=== PATIENT | female | born 1995 | race Caucasian/White ===

== ENCOUNTER 2020-08-13 02:00 | Observation (INO) | payer OTHER, SELFPAY ==
[2020-08-13] VITALS (27 sets, daily range): BP systolic 87–147; BP diastolic 43–91; PULSE 46–85; RESP 9–20; TEMP 36.4–38.3; O2SAT 93–100; BMI 22.3
--- NOTE | 2020-08-13 | PATH_ITS ---
[facility] Accession Number: [id number] . 01 Material submitted: . appendix - APPENDIX . 01 Clinical history: . NAUSEA, VOMITING, STOMACH PAIN . 01 Diagnosis: Vermiform Appendix, Appendectomy: Acute transmural, suppurative appendicitis and periappendicitis. Negative for neoplasia. V 08/15/2020 1337 Local . 01 Electronically signed: . Xenia Méndez MD, Pathologist NPI- [id number] . 01 Gross description: . The specimen is received in formalin, labeled appendix and consists of a 4.5 cm in length x 0.6 cm in diameter vermiform appendix with attached parra-yellow mesoappendix measuring 2.0 x 1.5 x 1.0 cm in aggregate. The specimen is parra-pink and smooth with adherent purulent exudate. Sectioning reveals a brown, hemorrhagic mucosa and a lumen measuring 0.5 cm in diameter. There is a possible perforation site located in the tip of the appendix. Spreading Machine Operator sections are submitted. . A1 - Margin, en face (blue) and cross-sections. A2 - Bisected tip, entirely submitted. ([id number]) /[facility] 08/14/2020 1813 Local . 01 Pathologist provided ICD-10: K37 . 01 CPT . 294231 Performed at: [address], [place], [place] [id number] MD Pawan Faulkner MD Phone: [phone]
--- NOTE | 2020-08-13 02:20 | ED.GENADULT ---
HPI - General Adult General Chief complaint: Abdominal Pain Stated complaint: nausea, vomiting, stomach pain Time Seen by Provider: 08/13/20 02:03 Source: patient Mode of arrival: Ambulatory Limitations: no limitations History of Present Illness HPI narrative: 24-year-old female here for evaluation of lower abdominal pain and vomiting. She states that she had a small amount abdominal pain throughout the day which worsened approximately 2000 hours last evening. She states she had a bowel movement in the morning but throughout the day felt like she had to have bowel movements but could not go. She denies any urinary symptoms. No vaginal bleeding. Has had multiple episodes of vomiting since 2000 hours. No fevers. No recent antibiotics. No recent travel. She states that the vomiting helps her abdominal pain slightly for very short period of time but then it returns. Related Data Allergies Allergy/AdvReac Type Severity Reaction Status Date / Time No Known Drug Allergies Allergy Verified 08/13/20 02:13 Review of Systems Constitutional Constitutional: Denies fever(s) Cardiovascular Cardiovascular: Denies chest pain and Denies dyspnea Respiratory Respiratory: Denies dyspnea Gastrointestinal Gastrointestinal: Reports abdominal pain, Denies change in bowel habits, Reports nausea and Reports vomiting Genitourinary Genitourinary: Denies dysuria Genitourinary: Denies dysuria and Denies vaginal discharge Musculoskeletal Musculoskeletal: Denies arthralgias, Denies back pain and Denies myalgias Integumentary/Breasts Skin/Breast: Denies rash Neurologic Neurologic: Denies behavioral changes Psychiatric Psychiatric: Denies behavioral changes Hematologic/Lymphatic Hematologic/Lymphatic: Denies easy bleeding and Denies easy bruising Allergic/Immunologic Allergic/Immunologic: Denies urticaria Patient History Medical History Healthy adult (Acute) Social History Smoking Status: Never smoker Smoking Status: Never smoker alcohol intake frequency: a few times a month Substance Use Type: does not use Exam Initial Vital Signs Initial Vital Signs: Vital Signs Temperature 97.6 F 08/13/20 02:08 Pulse Rate 52 L 08/13/20 02:08 Respiratory Rate 16 08/13/20 02:08 Blood Pressure 141/87 H 08/13/20 02:08 Pulse Oximetry 100 08/13/20 02:08 Const General: cooperative, well developed and well groomed Limitations: mental status not altered [facility] Head: normal to inspection and normocephalic Resp Effort & Inspection: normal respiratory effort Auscultation: clear to auscultation bilaterally Cardio Rate: regular rate Rhythm: regular rhythm GI Inspection: non-distended Palpation: soft, No firm, guarding and tender (Diffuse tenderness) Skin Lesions: no lesions Rashes: no rashes Neuro General: patient alert, patient awake and patient oriented x3 Cognition: normal cognition Speech: speech normal Extrem General: normal to inspection and capillary refill normal Psych Appearance: grossly normal and well kempt Course Orders Ordered: ED Orders 08/13/20 02:10 Complete Blood Count AUTO DIFF Stat Comprehensive Metabolic Panel Stat Lipase Stat Test Serum,Qual Stat 08/13/20 02:52 CT abdomen pelvis w con Stat 08/13/20 03:52 Consult to General Surgery Urgent 08/13/20 03:56 COVID19 -ED/INPAT/OR/L&D Stat Piperacillin/Tazobactam/Dextrose (Zosyn) 3.375 gm in 50 mls @ 100 mls/hr IV NOW ONE Stop: 08/13/20 04:21 Sodium Chloride (Normal Saline 0.9%) 1,000 mls @ 125 mls/hr IV CONT CELSA Morphine Sulfate (Morphine) 2 mg IV Q4HR PRN PRN Reason: Pain, Mild (1-3) Ondansetron HCl (Zofran) 4 mg IV Q4HR PRN PRN Reason: Nausea And Vomiting Discontinued Medications Sodium Chloride (Normal Saline 0.9%) 1,000 mls @ 1,000 mls/hr IV BOLUS ONE Stop: 08/13/20 03:18 Last Infusion: 08/13/20 03:00 Dose: 0 mls/hr Documented by: Admin: 08/13/20 02:22 Dose: 1,000 mls/hr Documented by: RMARTIN Sodium Chloride (Normal Saline 0.9%) 1,000 mls @ 1,000 mls/hr IV BOLUS ONE Stop: 08/13/20 03:50 Last Infusion: 08/13/20 03:52 Dose: 0 mls/hr Documented by: Admin: 08/13/20 02:54 Dose: 1,000 mls/hr Documented by: RMARTIN Ketorolac Tromethamine (Toradol) 30 mg IV NOW ONE Stop: 08/13/20 02:49 Last Admin: 08/13/20 02:51 Dose: 30 mg Documented by: NERIS Ondansetron HCl (Zofran) 4 mg IV NOW ONE Stop: 08/13/20 02:20 Last Admin: 08/13/20 02:23 Dose: 4 mg Documented by: NERIS Vital Signs Vital signs: Vital Signs - 8 hr 08/13/20 02:08 08/13/20 03:00 Temperature 97.6 F Pulse Rate 52 L 54 L Respiratory Rate 16 16 Blood Pressure 141/87 H 147/86 H Pulse Oximetry 100 97 Medical Decision Making Lab Data Lab results reviewed: Yes I reviewed the patient's lab results. Result diagrams: 08/13/20 02:10 08/13/20 02:10 Labs: Lab Results 08/13/20 08/13/20 08/13/20 Range/Units 02:10 02:10 02:10 WBC 25.2 H (4.5-11.0) X10^3/uL RBC 4.38 (4.0-5.2) X10^6/uL Hgb 13.1 (12.0-16.0) g/dL Hct 39.4 (36-46) % MCV 89.9 (80-100) fL MCH 29.9 (26-34) PG MCHC 33.2 (30-36) % RDW 12.8 (11.6-14.8) % Plt Count 250 (150-400) X10^3/uL Neut % (Auto) Not Reportable Lymph % (Auto) Not Reportable [place] % (Auto) Not Reportable Eos % (Auto) Not Reportable Baso % (Auto) Not Reportable Lymph # (Auto) Not Reportable [place] # (Auto) Not Reportable Baso # (Auto) Not Reportable Total Counted 100 Seg Neutrophils % 93.0 H (38-70) % Band Neutrophils % 1.0 L (3-7) % Lymphocytes % (Manual) 3.0 L (25-45) % Monocytes % (Manual) 2.0 (2-11) % Basophils % (Manual) 1.0 (0-1) % Neutrophils # (Manual) 95091 H (1741-5912) /uL RBC Morphology Normal morphology Sodium 138 (137-145) mmol/L Potassium 3.9 (3.4-5.1) mmol/L Chloride 104 (98-107) mmol/L Carbon Dioxide 27 (22-32) mmol/L BUN 16 (7-17) mg/dL Creatinine 0.63 (0.52-1.04) mg/dL Estimated GFR > 60.0 (>60) mL/min BUN/Creatinine Ratio 25.4 H (6-22) Glucose 131 H (70-100) mg/dL Calcium 9.3 (8.4-10.2) mg/dL Total Bilirubin 0.7 (0.2-1.3) mg/dL AST 31 (14-36) IU/L ALT 17 (<35) IU/L Alkaline Phosphatase 69 (38-126) U/L Total Protein 7.4 (6.3-8.2) g/dL Albumin 4.5 (3.5-5.0) g/dL Globulin 2.9 (1.7-4.1) g/dL Albumin/Globulin Ratio 1.6 (1.0-2.8) Lipase 91 (23-300) U/L Serum , Qual Negative (Negative) Imaging Data CT scan - abdomen/pelvis: Radiologist's Impression: Acute appendicitis, malpositioned IUD in the cervix MDM Narrative Medical decision making narrative: Otherwise healthy 24-year-old female with history and physical in CT scan findings consistent with appendicitis. I did discuss the case with Dr. Ribera with General surgery. Will admit for further evaluation and treatment. Antibiotics ordered per his request. I did inform Dr. Ribera of the incidental finding of the malpositioned IUD. I also discussed this with the patient so that if it is not addressed during this hospital visit that she can contact her primary provider/dice dealer provider to have this incidental finding corrected. Patient expressed understanding and agreement. I did discuss the CT scan findings with the patient. We did discuss the need for admission to the hospital. She once again expressed understanding and agreement. Discharge Plan Departure Patient Disposition: Admitted As Inpatient Clinical Impression: Acute appendicitis Qualifiers: Acute appendicitis type: with localized peritonitis Appendicitis gangrene presence: without gangrene Appendicitis perforation presence: without perforation Appendicitis abscess presence: without abscess Qualified Code(s): K35.30 - Acute appendicitis with localized peritonitis, without perforation or gangrene Malpositioned intrauterine device (IUD) Qualifiers: Encounter type: initial encounter Qualified Code(s): T83.32XA - Displacement of intrauterine contraceptive device, initial encounter
[2020-08-13] MEDS: SODIUM CHLORIDE 0.9% 1,000 ML 1000 ML IV ×2 (02:22→02:54)
[2020-08-13] MEDS: ONDANSETRON 4 MG/2 ML INJ IV (02:23)
[2020-08-13 02:32] LABS: Hematocrit 39.4 % (36-46); Hemoglobin 13.1 g/dL (12.0-16.0); Mean Corpuscular HGB Conc 33.2 % (30-36); Mean Corpuscular Hemoglobin 29.9 PG (26-34); Mean Corpuscular Volume 89.9 fL (80-100); Platelet Count 250 X10^3/uL (150-400); Red Blood Cell Count 4.38 X10^6/uL (4.0-5.2); Red Cell Distribution Width 12.8 % (11.6-14.8); White Blood Cell Count 25.2 X10^3/uL (4.5-11.0)
[2020-08-13 02:33] LABS: Add Manual Diff / Slide Review YES
[2020-08-13 02:37] LABS: Pregnancy Test Serum,Qual Negative (Negative)
[2020-08-13 02:43] LABS: Alanine Aminotransferase 17 IU/L (<35); Albumin 4.5 g/dL (3.5-5.0); Albumin Globulin Ratio 1.6 (1.0-2.8); Alkaline Phosphatase 69 U/L (38-126); Aspartate Aminotransferase 31 IU/L (14-36); BUN Creatinine Ratio 25.4 (6-22); Bilirubin Total 0.7 mg/dL (0.2-1.3); Blood Urea Nitrogen 16 mg/dL (7-17); Calcium 9.3 mg/dL (8.4-10.2); Carbon Dioxide 27 mmol/L (22-32); Chloride 104 mmol/L (98-107); Estimated Glomerular Filt Rate > 60.0 mL/min (>60); Globulin 2.9 g/dL (1.7-4.1); Glucose 131 mg/dL (70-100); HEMOLYSIS 16 (0-50); Lipase 91 U/L (23-300); Potassium 3.9 mmol/L (3.4-5.1); Sodium 138 mmol/L (137-145); Total Protein 7.4 g/dL (6.3-8.2)
[2020-08-13] MEDS: KETOROLAC 60 MG/2 ML VIAL 30 MG IV (02:51)
--- NOTE | 2020-08-13 02:52 | DI.CT.S_ITS ---
PROCEDURE: CT ABDOMEN PELVIS W CON INDICATIONS: Generalized abdominal pain with vomiting TECHNIQUE: After the administration of intravenous contrast, 5 mm thick sections acquired from the diaphragm to the symphysis. 5 mm coronal and sagittal reformats were acquired. For radiation dose reduction, the following was used: automated exposure control, adjustment of mA and/or kV according to patient size. COMPARISON: None. FINDINGS: Image quality: Excellent. ABDOMEN: Lung bases: Lung bases are clear. Heart size is normal. Solid organs: Liver is normal in size and enhancement. There is moderate, nonspecific periportal edema. Gallbladder wall is normal thickness though there is pericholecystic fluid, likely secondary to presence of periportal edema. Biliary system is non dilated. Pancreas enhances normally. Spleen is normal in size and enhancement. No adrenal nodules. Kidneys demonstrate normal size and enhancement, without hydronephrosis. Peritoneum and bowel: The appendix demonstrates a thickened wall and is diffusely enlarged. There is hyperdense material within it. Minimal periappendiceal fat stranding. Increased quantity of solid stool present in the rectum. Bowel loops and stomach are otherwise decompressed. There is a small amount of free pelvic fluid. No focal drainable abscess. No extraluminal gas. Nodes and vessels: No retroperitoneal or mesenteric adenopathy by size criteria. Aorta and inferior vena cava are normal in size. Miscellaneous: No ventral hernias. PELVIS: Genitourinary: Bladder wall thickness is normal. There is an IUD present. It is displaced into the cervix and obliquely oriented. No definite myometrial perforation. Involuting right ovarian cyst is present. Left ovary was not well seen. Miscellaneous: No inguinal hernias or adenopathy. Bones: No suspicious bony lesions. No vertebral body compression fractures. IMPRESSION: 1. Probable early acute appendicitis. 2. Involuting right ovarian cyst. 3. Low, malpositioned IUD. 4. Concordant with preliminary report. Dictated by: Sarah Robert M.D. on 08/13/2020 at 8:08 Approved by: Sarah Robert M.D. on 08/13/2020 at 8:12
[2020-08-13 02:59] LABS: Neutrophils Absolute Manual 23688 /uL (3000-5900); Total Cells Counted 100
[2020-08-13 03:00] LABS: RBC Morphology Normal Morphology
[2020-08-13] MEDS: PIPERACILLIN-TAZO 3.375 GM/50 ML FROZ.PIGGY IV ×3 (03:57→21:27)
[2020-08-13] MEDS: SODIUM CHLORIDE 0.9% 1,000 ML 125 ML IV (03:58)
[2020-08-13 04:26] LABS: COVID19 -Nasal RAPID Negative (Negative)
[2020-08-13] MEDS: MORPHINE 2 MG/ML INJ IV (08:00)
[2020-08-13 08:33] LABS: RBC Urine None Seen (0-5/HPF)
[2020-08-13 08:34] LABS: Appearance Urine UA CLEAR; Bilirubin Urine UA NEGATIVE (NEGATIVE); Color Urine UA YELLOW; Glucose Urine UA NEGATIVE (Negative); Ketones Urine UA 1+ (NEGATIVE); Leukocyte Esterase Urine UA NEGATIVE (NEGATIVE); Nitrite Urine UA NEGATIVE (Negative); Occult Blood Urine UA NEGATIVE (Negative); Protein Urine UA NEGATIVE (Negative); Urobilinogen Urine UA 0.2 E.U./dL (0.2)
[2020-08-13 08:53] LABS: pH Urine UA 6.5 (4.5-8.0)
[2020-08-13 08:54] LABS: Bacteria Urine Occasional (0-1); Culture Indicated Urine Cult Not Indicated; Squamous Epithelial Cell Urine 0-1 /HPF (0-5/HPF); WBC Urine 0-1/HPF (0-5/HPF)
--- NOTE | 2020-08-13 11:13 | PC.NURSE ---
Bedside report given to pre op RN. Pt saline locked. Left to OR at 1112 in no acute distress. Stable VS.
--- NOTE | 2020-08-13 11:14 | PM.HP.1 ---
History of Present Illness History of Present Illness Date Patient Seen: 08/13/20 Time Patient Seen: 11:14 Chief complaint: nausea, vomiting, stomach pain Narrative: Patient is a woman who developed pain in her right abdomen yesterday at about 8:00 p.m. which persisted. She has never had pain like this. He was accompanied by persistent nausea and vomiting which is repeated. Last bowel movement was small but occurred yesterday mid day. She has had no prior abdominal operations. Patient History Medical History Healthy adult (Acute) Family & Social History Social History: household members significant other Prior Living Arrangements House Safety & Behavioral: Feels Safe in Current Yes Environment Been Physically Hurt or No Threatened By a Person Suicidal Ideation Description None Suicide Plan Description No Plan Tobacco & Substance use: Smoking Status Never smoker alcohol intake current alcohol intake frequency a few times a month Substance Use Type does not use Meds Home Medications and Allergies Home Medications Medication Instructions Recorded Confirmed Type No Known Home Medications 08/13/20 08/13/20 History Allergies Allergy/AdvReac Type Severity Reaction Status Date / Time No Known Drug Allergies Allergy Verified 08/13/20 02:13 Review of Systems Review of Systems Narrative: Patient has no visual difficulties, double vision, pain in her eyes, earache, sore throats, trouble swallowing, no cough cold or asthma, no heart disease, chest pain, black or bloody bowel movement, seizures blackouts numbness, tingling unusual bruising or bleeding. She gets an occasional tooth ache in her left upper. Exam Vital Signs (past 8 hours): - 08/13/20 03:30 08/13/20 03:31 08/13/20 04:00 Temperature Pulse Rate 47 L 46 L 52 L Respiratory Rate Blood Pressure 141/71 H 142/91 H Pulse Oximetry 99 100 99 08/13/20 04:40 08/13/20 07:55 08/13/20 11:07 Temperature 98.5 F 97.6 F 98.9 F Pulse Rate 82 47 L 80 Respiratory Rate 20 16 16 Blood Pressure 129/67 124/66 122/64 Pulse Oximetry 98 96 99 Oxygen Delivery Method Room Air Oxygen Flow Rate 0 Narrative Exam Narrative: Eyes are nonicteric pupils equal round reactive to light oral mucosa pink moist no open lesions teeth are intact. No nodes in the neck supraclavicular areas. Trachea is midline mobile. No masses neck or thyroid. Lungs are clear to auscultation without rales or rhonchi. Equal to percussion. Heart regular rate and rhythm. She has a very soft murmur heard best at left sternal border without radiation into the neck. Abdomen is flat soft but tender. Most exquisite pain/tenderness in the right lower quadrant which she also has guarding. Elsewhere there is no guarding. She is alert and oriented x3. Speech rate and content are appropriate affect is appropriate. Tibialis posterior pulses are 2+. Objective Imaging CT scan - abdomen: My impression: Patient has evidence of acute appendicitis. No other significant findings. Labs Result Diagrams: 08/13/20 02:10 08/13/20 02:10 Labs: Laboratory Results - last 24 hr 08/13/20 08/13/20 08/13/20 02:10 02:10 02:10 WBC 25.2 H RBC 4.38 Hgb 13.1 Hct 39.4 MCV 89.9 MCH 29.9 MCHC 33.2 RDW 12.8 Plt Count 250 Neut % (Auto) Not Reportable Lymph % (Auto) Not Reportable [place] % (Auto) Not Reportable Eos % (Auto) Not Reportable Baso % (Auto) Not Reportable Lymph # (Auto) Not Reportable [place] # (Auto) Not Reportable Baso # (Auto) Not Reportable Total Counted 100 Seg Neutrophils % 93.0 H Band Neutrophils % 1.0 L Lymphocytes % (Manual) 3.0 L Monocytes % (Manual) 2.0 Basophils % (Manual) 1.0 Neutrophils # (Manual) 56984 H RBC Morphology Normal morphology Sodium 138 Potassium 3.9 Chloride 104 Carbon Dioxide 27 BUN 16 Creatinine 0.63 Estimated GFR > 60.0 BUN/Creatinine Ratio 25.4 H Glucose 131 H Calcium 9.3 Total Bilirubin 0.7 AST 31 ALT 17 Alkaline Phosphatase 69 Total Protein 7.4 Albumin 4.5 Globulin 2.9 Albumin/Globulin Ratio 1.6 Lipase 91 Serum , Qual Negative Urine Color Urine Appearance Urine pH Ur Specific [place] Urine Protein Urine Glucose (UA) Urine Ketones Urine Occult Blood Urine Nitrate Urine Bilirubin Urine Urobilinogen Ur Leukocyte Esterase Urine RBC Urine WBC Ur Squamous Epith Cells Urine Bacteria Ur Culture Indicated? Nasal Screen MRSA (PCR) COVID-19 PCR 08/13/20 08/13/2008/13/20 04:06 05:15 08:10 WBC RBC Hgb Hct MCV MCH MCHC RDW Plt Count Neut % (Auto) Lymph % (Auto) [place] % (Auto) Eos % (Auto) Baso % (Auto) Lymph # (Auto) [place] # (Auto) Baso # (Auto) Total Counted Seg Neutrophils % Band Neutrophils % Lymphocytes % (Manual) Monocytes % (Manual) Basophils % (Manual) Neutrophils # (Manual) RBC Morphology Sodium Potassium Chloride Carbon Dioxide BUN Creatinine Estimated GFR BUN/Creatinine Ratio Glucose Calcium Total Bilirubin AST ALT Alkaline Phosphatase Total Protein Albumin Globulin Albumin/Globulin Ratio Lipase Serum , Qual Urine Color Yellow Urine Appearance Clear Urine pH 6.5 Ur Specific [place] 1.010 Urine Protein Negative Urine Glucose (UA) Negative Urine Ketones 1+ H Urine Occult Blood Negative Urine Nitrate Negative Urine Bilirubin Negative Urine Urobilinogen 0.2 Ur Leukocyte Esterase Negative Urine RBC None seen Urine WBC 0-1/hpf Ur Squamous Epith Cells 0-1 /hpf Urine Bacteria Occasional (0-1) Ur Culture Indicated? Cult not indicated Nasal Screen MRSA (PCR) Negative for mrsa COVID-19 PCR Negative Assessment & Plan Assessment & Plan narrative: Patient with classic history and physical exam for acute appendicitis. CT is consistent with same. I talked to her about laparoscopic removal of her appendix possible open procedure. Talked to her about alternative diagnoses. Risks of bleeding infection hernia all discussed with her. She appears to understand and wishes to proceed. Quality VTE Deep Vein Thrombosis/Pulmonary Embolism Present on Admission: No
[2020-08-13] MEDS: MORPHINE 10 MG/ML INJ 4 MG IV (11:35)
[2020-08-13] MEDS: LACTATED RINGERS 1,000 ML 42 ML IV (11:38)
--- NOTE | 2020-08-13 13:22 | SUR.OPER ---
Supine on padded OR bed, head on pillow, left arm padded and tucked at side, right arm supported and secured to armboard, legs uncrossed, safety belt at thigh, tape over blanket over lower legs .
[2020-08-13] MEDS: BUPIVACAINE 0.5% (PF) VIAL 30 ML INJ (13:29)
--- NOTE | 2020-08-13 15:00 | PM.OP.1 ---
Operative Date/Time/Diagnoses Date of procedure: 08/13/20 Time of procedure: 14:30 Pre-op diagnosis: Acute appendicitis Post-op diagnosis: same Procedure & Clinicians Procedure: Laparoscopic appendectomy Same procedure as scheduled: Yes Indications: Classic history physical exam and CT scan for acute appendicitis Surgeon: Mariano Ribera Click Yes if Unassisted: Yes Anesthesia Type: General Operative Notes Findings: Acute appendicitis Closure Type: primary Specimen(s): other (Appendix) Applied: catheter (Hardin placed preop and removed the immediate postop) Estimated Blood Loss (mL): 7 Blood products transfused: none Procedure in detail: Patient is placed supine on the operating room table and underwent general endotracheal anesthesia. She was prepped and draped in the usual fashion. Local anesthetic was infiltrated and a small incision made beneath the umbilicus. It was carried down under direct vision peritoneal cavity. 10 mm port was inserted after placing two 0 Vicryl sutures in the fascia. The abdomen is insufflated and 2 additional 5 mm ports were placed, 1 between the umbilicus and suprapubic area in the other in the left lower quadrant. The appendix was identified is a thickened inflamed structure attached to the abdominal sidewall. The attachments were delighted divided with cautery and scissors. The mesoappendix was completely divided including the artery using cautery and scissors. The base was cleared and an 0 PDS loop was placed at the base in cinched down. Distal to this the appendix was transected and the base cauterized. The appendix was immediately placed in a bag without spillage. It was removed without difficulty through the umbilical port. the right gutter and pelvis were irrigated and suctioned free of fluid. There was no ongoing bleeding. The ports were all removed. The sutures at the umbilicus were tied after and a 2 0 PDS was placed between them just prior to tying them. The wounds were all irrigated and 4 0 Vicryl subcuticular stitches were used to close the skin and Steri-Strips were applied. Band-Aids were placed over these. The patient was awakened extubated taken recovery area in good condition Complications: none Post-operative Condition: stable Disposition: PACU
--- NOTE | 2020-08-13 15:23 | CM.DANOTE ---
DCP/Assessment: Reviewed chart. Patient is a 24yr old female admitted to [facility] with abdominal pain. No PCP listed. Primary payor is 1)Carlitos Cosby. Attempted to meet with patient this afternoon. Patient off floor for lap appy. Patient's significant other/Satish in room waiting for patient to return. Introduced CM/SW role and notified him that CM team would check back with patient tomorrow. Satish reports patient completely I in all ADL's and that he will be providing transport home and support. P: Anticipate home once stable. CM team to attempt to meet patient in person prior to d/c. YANG Vallejo Discharge Planning/Care Management CM Discharge Assessment Start: 08/13/20 15:20 Freq: Status: Active Protocol: Document 08/13/20 15:20 KJS (Rec: 08/13/20 15:23 KJS [id number]) Discharge Planning Assessment Assigned Drug And Alcohol Treatment Specialist YANG Vallejo Contact Information Ramiro Carranza (Father) [phone] Advance Directives? No History Provided By Significant Other,Medical Record Has Patient been admitted in last 30 No days? Prior Living Arrangements House Household Members significant other Type of transporation used prior to Drives own vehicle admit Independent with ADL's Yes Is patient alert and oriented? Off floor for surgery at time of visit. Caregiver for Another No Barriers to Discharge No Discharge Plan Home Transportation Arrangement Significant other/Satish to provide transport. Whiteboard Updated in Patient Room with Yes name and ext. # of Drug And Alcohol Treatment Specialist Review Status In Process Next Review Type Continued Stay Review
[2020-08-13] MEDS: LACTATED RINGERS 1,000 ML 125 ML IV (16:06)
--- NOTE | 2020-08-13 16:19 | SUR.PHASEI ---
1540-Pt transferred upstairs to room 227 in stable condition with no c/o, denies pain or nausea, sitting up drinking water now talking comfortably. Handoff in room to floor RN
--- NOTE | 2020-08-13 16:48 | PC.NURSE ---
Received from PACU @ 1545 awake alert and oriented x4. Denies pain or discomfort, taking sips of water po without nausea. IV LR @ 125/hr initiated per order. SCDs applied, VSS stable, afebrile. Oriented to environment, bed in low and locked position, call light in reach. Able to make needs known.
[2020-08-13] MEDS: GABAPENTIN 300 MG CAPSULE PO (21:27)
[2020-08-14] MEDS: LACTATED RINGERS 1,000 ML 125 ML IV (01:41)
[2020-08-14 06:00] VITALS: BP 126/54; PULSE 50; RESP 18; TEMP 36.8; O2SAT 98
[2020-08-14] MEDS: KETOROLAC 30 MG/ML VIAL IV (06:08)
[2020-08-14 06:48] LABS: Add Manual Diff / Slide Review NO; Basophils Absolute Auto 0 /uL (0-100); Basophils Percent Auto 0.1 % (0-2); Eosinophils Absolute Auto 0 /uL (0-450); Eosinophils Percent Auto 0.1 % (2-4); Hematocrit 31.3 % (36-46); Hemoglobin 10.6 g/dL (12.0-16.0); Lymphocytes Absolute Auto 1300 /uL (1100-4500); Lymphocytes Percent Auto 5.8 % (25-40); Mean Corpuscular HGB Conc 33.9 % (30-36); Mean Corpuscular Hemoglobin 30.7 PG (26-34); Mean Corpuscular Volume 90.6 fL (80-100); Monocytes Absolute Auto 1100 /uL (0-900); Neutrophils Absolute Auto 19400 /uL (1500-7000); Platelet Count 190 X10^3/uL (150-400); Red Blood Cell Count 3.45 X10^6/uL (4.0-5.2); White Blood Cell Count 21.8 X10^3/uL (4.5-11.0)
[2020-08-14 08:00] VITALS: BP 126/53; PULSE 47; RESP 14; TEMP 36.6; O2SAT 97
[2020-08-14] MEDS: GABAPENTIN 300 MG CAPSULE PO (08:35)
[2020-08-14] MEDS: SENNOSIDES 8.6 MG TABLET 17.2 MG PO (08:36)
[2020-08-14] MEDS: ENOXAPARIN 40 MG/0.4 ML SYRINGE SUBCUT (08:36)
[2020-08-14] MEDS: OXYCODONE/ACETAMINOPHEN 5/325 TABLET 1 TAB PO (08:36)
--- NOTE | 2020-08-14 10:08 | PM.DS.1 ---
History of Present Illness History of Present Illness Chief complaint: nausea, vomiting, stomach pain Narrative: Patient is a woman who developed pain in her right abdomen yesterday at about 8:00 p.m. which persisted. She has never had pain like this. He was accompanied by persistent nausea and vomiting which is repeated. Last bowel movement was small but occurred yesterday mid day. She has had no prior abdominal operations. Discharge Providers Provider Date of admission: 08/13/20 04:20 Discharge Date: 08/14/20 Consults: 08/13/20 03:52 Consult to General Surgery Urgent Comment: Consulting Provider: Mariano Ribera Reason for consultation: Acute appendicitis, admission Has provider been notified: Yes 08/13/20 15:53 Consult to Discharge Planning Routine Comment: Discharge provider: Mariano Ribera MD Summary Hospital Course Discharge Diagnosis: Acute appendicitis Hospital Course: Patient was admitted and begun on broad-spectrum antibiotics and taken to the operating room where she underwent a laparoscopic appendectomy. Postoperative course was smooth. White blood cell count was remarkably elevated and though it improved after appendectomy it remained high. Therefore she was discharged on oral antibiotics tolerating a general diet with wounds that showed no sign of infection. Status at Discharge Cognitive/behavioral status at discharge: oriented Functional status at discharge: independent ambulation Overall status at discharge: patient is progressing back to baseline Time Spent with Patient Time spent: Less than 30 minutes Exam Vital Signs (past 8 hours): - 08/14/20 06:00 08/14/20 08:00 Temperature 98.2 F 97.9 F Pulse Rate 50 L 47 L Respiratory Rate 18 14 Blood Pressure 126/54 L 126/53 L Pulse Oximetry 98 97 Oxygen Delivery Method Room Air Oxygen Flow Rate 0 Objective Labs Result Diagrams: 08/14/20 06:35 08/13/20 02:10 Labs: Laboratory Results - last 24 hr 08/14/20 06:35 WBC 21.8 H RBC 3.45 L Hgb 10.6 L Hct 31.3 L MCV 90.6 MCH 30.7 MCHC 33.9 RDW 13.0 Plt Count 190 Neut % (Auto) 89.0 H Lymph % (Auto) 5.8 L [place] % (Auto) 5.0 Eos % (Auto) 0.1 L Baso % (Auto) 0.1 Neut # (Auto) 35065 H Lymph # (Auto) 1300 [place] # (Auto) 1100 H Eos # (Auto) 0 Baso # (Auto) 0 Discharge Plan Discharge Plan Patient Disposition: Home Discharge comment: You had acute appendicitis. I prescribed pain medication and antibiotics for you to go home. Those prescriptions have been sent to [facility]. While taking the antibiotics, do not drink any alcohol including mouthwash. It will cause you to vomit. Discharge orders & Medications Prescriptions: New hydrocodone-acetaminophen [[place]] 5-325 mg tablet See Rx Instructions .ROUTE .COMPLEX PRN (Reason: painful procedure) Qty: 14 RF: 0 levofloxacin [Levaquin] 500 mg tablet 500 mg PO DAILY Qty: 4 RF: 0 metronidazole [Flagyl] 500 mg tablet 500 mg PO Q8H Qty: 12 RF: 0 Follow up/Referrals: Mariano Ribera MD [Physician] - 08/21/20 10:30 am (If you need to reach a doctor please call our office. If our office is closed listen to the entire message and at the end you will be connected with the page communications operator who will call the doctor on-call for our practice. Due toCOVID our office is presently closed Mondays and Fridays.) Diet/Activity/Treatments Diet: Diet as Tolerated Activity: Do not drive until pain-free off medication. You may walk. No other exercise. No pool or tub for least 2 weeks. Do not return to work until after I see you in the office. Cold/Heat Therapy: You may apply heat or ice to your incisions if it is helpful. Skin/Wound/Dressing Care Report to your healthcare provider any signs of infection, such as:: chills, fever, night sweats, increased pain, unusual drainage and unusual redness Dressing: Removed the 2 remaining Band-Aids tomorrow and then you may shower. Do not pull the tapes off that are under the Band-Aids on last they irritate her skin. Visit Report/Discharge Packet Visit Report Forms: Patient Portal/API, Stroke Signs & Symptoms Discharge Data Attending Provider: Mariano Ribera Admit Date/Time: 08/13/20 04:20 Quality VTE Deep Vein Thrombosis/Pulmonary Embolism Present on Admission: No
--- NOTE | 2020-08-14 10:16 | PC.NURSE ---
Assess- Patient is A&ox3, she states that her pain earlier was 4/10.Patient given 1 oxycodone for complaints of lower abdominal pain. This has been helpul for discomfort. She has 3 large bandaide incisions to her lower abdomen, middle bandage has a small amount of old dried drainage. Patient has been up ambulating. into see patient and he has discharged her. She has not passed gas yet and he is aware of this. Patient will follow up with in a few weeks.
--- NOTE | 2020-08-21 22:10 | PC.NURSE ---
Late Entry: Zosyn infusion started 08/13 at 21:27 complete at 21:58.
== END 2020-08-14 11:16 | disposition home or self-care (01) ==
LOC: ED 03:51 → ICU 05:51 → AC 15:38
PROVIDERS: Admitting Provider Specialist; Emergency Provider Emergency Medicine; Referring Provider Emergency Medicine; Visit Provider Specialist
PROC: 0DTJ4ZZ Resection of Appendix, Percutaneous Endoscopic Approach (ICD-10-PCS; CPT 44970; principal; 2020-08-13 12:00)
DX: K35.30 Acute appendicitis with localized peritonitis, without perforation or gangrene (principal); Z11.59 Encounter for screening for other viral diseases
CPT/HCPCS: 44970; 36415; 74177; 80053; 81001; 83690; 84703; 85025; 87635; 87797; 94762; 96361; 96365; 96366; 96372; 96375; 96376; 99219; 99284; G0378; J1100; J1650; J1885; J2250; J2270; J2405; J2543; J2704; J3010; Q9967